=== PATIENT | male | born 1960 | race Caucasian/White ===

== ENCOUNTER → 2016-09-11 | Outpatient (CLI) | payer BC ==
--- NOTE | 2016-09-11 12:01 | MR ---
EXAMINATION TYPE: MR shoulder RT wo con DATE OF EXAM: 09/11/2016 COMPARISON: Plain film 07/21/2016 HISTORY: rt shoulder pain and discomfort TECHNIQUE: Multiplanar, multisequence imaging of the right shoulder is performed without contrast. FINDINGS: Rotator Cuff: There is abnormal increased signal within the rotator cuff tendon, there is abnormal th ickening. Increased signal is present at the insertion on the humeral head both anteriorly and excellence leader iorly suggestive of partial full-thickness tears. There are associated pseudocysts, geodes. Acromioclavicular Joint: Hypertrophic changes present, there is some mass effect on the musculotendin ous junction of supraspinatus, fluid signal present without subacromial subdeltoid bursa Glenohumeral Joint: Intact Labrum: The labrum appears grossly intact given limitation of non-arthrogram study. Biceps Tendon: Long head of biceps tendon is perched the anterior aspect of the bicipital groove. It appears subluxed medially. Bone marrow signal: As above Other: No additional significant abnormality is appreciated. IMPRESSION: Partial full-thickness tears of the rotator cuff there is associated tendinosis. Correlate for imping ement. Displacement of the long head of biceps tendon.
== END | disposition home or self-care (01) ==
LOC: RADMRIMAIN 10:13
PROVIDERS: ATTEND Orthopaedic Surgery
DX: M75.111 Incomplete rotator cuff tear or rupture of right shoulder, not specified as traumatic (principal); S43.004A Unspecified dislocation of right shoulder joint, initial encounter; M67.813 Other specified disorders of tendon, right shoulder

== ENCOUNTER 2017-05-31 05:51 | Day surgery (SDC) | payer BC ==
[2017-05-28 12:54] VITALS: BMI 26.5
--- NOTE | 2017-05-30 16:57 | HP ---
HISTORY AND PHYSICAL REASON FOR ADMISSION: Surgery scheduled for 05/31/2017. HISTORY OF PRESENT ILLNESS: Devonte Carlson is a 56-year-old patient seen with progressive right shoulder pain. After having treatment options discussed, he elected to proceed with arthroscopy. Consent regarding procedure was obtained. Medical clearance provided by Dr. Garcia. PAST MEDICAL HISTORY: Osteoarthritis. PAST SURGICAL HISTORY: Arthroscopy. MEDICATIONS: Multivitamins. ALLERGIES: None reported. SOCIAL HISTORY: Patient currently smokes cigarettes. PHYSICAL EXAMINATION: Evaluation right shoulder flexion 150 degrees, abduction 140 degrees, external rotation 60 degrees with weakness and pain. There is tenderness along the anterolateral acromion rotator cuff insertion site. Positive impingement sign at 100 degrees. Drop- arm sign is positive. Distal neurovascular exam is intact. RADIOGRAPHS: Right shoulder radiographs revealed a type 2 anterior acromion, acromioclavicular joint osteoarthritis and cystic changes of the tuberosity. An MRI of the right shoulder revealed impingement with rotator cuff tendon tear. IMPRESSION: 1. Right shoulder impingement with rotator cuff tear. 2. Tobacco use. PLAN: Right shoulder arthroscopy with subacromial decompression, probable arthroscopic rotator cuff repair, possible Enid procedure and debridement. Surgery is scheduled for 05/31/2017. MMODL / IJN: [id number] /
[~2017-05-31 05:51] MED LIST: LACTATED RINGERS 1,000 ML IV SCH; MORPHINE SULFATE 4 MG/ML SYRINGE IV PRN; ceFAZolin IN SWFI 2 GM/20 ML SYRINGE IVP ONE
[2017-05-31 06:15] VITALS: RESP 16; TEMP 97.4
[2017-05-31] MEDS ORDERED: MIDAZOLAM 2 MG/2 ML VIAL IVP ONE (06:58)
[2017-05-31] MEDS ORDERED: ONDANSETRON 4 MG/2 ML VIAL IVP ONE (06:59)
[2017-05-31] MEDS ORDERED: DEXAMETHASONE SOD PHOSPHATE 10 MG/ML 1 ML VIAL IV ONE (06:59)
[2017-05-31] MEDS ORDERED: SUCCINYLCHOLINE CHLORIDE 100 MG/5 ML SYR IV ONE (07:17)
[2017-05-31] MEDS ORDERED: PROPOFOL 10 MG/ML 20 ML VIAL IV ONE (07:17)
[2017-05-31] MEDS ORDERED: GLYCOPYRROLATE 0.2 MG/ML 2 ML VIAL ONE (07:17)
[2017-05-31] MEDS ORDERED: ROPIVACAINE 5 MG/ML 30 ML VIAL ONE (07:17)
[2017-05-31] MEDS ORDERED: LIDOCAINE 1% INJ 10MG/ML (20 ML MDV) ONE (07:17)
[2017-05-31] MEDS ORDERED: LACTATED RINGERS 1,000 ML IV ONE (07:58)
--- NOTE | 2017-05-31 08:00 | P.ONQ ---
Anesthesiology Proc Note - PNB - Peripheral Nerve Block Performed Right Interscalene Single Time Out Performed: Yes Procedure Start Time: 06:47 Procedure Stop Time: 06:56 Indication: Acute Post-Operative Pain, Requested by physician Sedation Type: Sedate with meaningful contact maintained Preparation: Sterile Prep Position: Supine Catheter: None Needle Types: Facet Needle Size: 50mm (2") Needle Gauge: 20 Technique: Ultrasound Injectate: 0.5% Ropivacaine (see comment for volume) (15 mls Ropivacaine 0.5% + 15 mls Lidocaine 1%)
--- NOTE | 2017-05-31 09:19 | P.OP ---
Date of Procedure: 05/31/17 Preoperative Diagnosis: Right shoulder impingement Postoperative Diagnosis: 1. Right shoulder rotator cuff tear 2. Right shoulder impingement 3. Right shoulder acromioclavicular joint osteoarthritis 4. Right shoulder partial long head biceps tendon tear 5. Right shoulder superficial anterior labral tear Procedure(s) Performed: 1. Right shoulder arthroscopic rotator cuff repair 2. Right shoulder arthroscopic subacromial decompression 3. Right shoulder arthroscopic [place] procedure 4. Right shoulder arthroscopic biceps tenotomy 5. Right shoulder arthroscopic debridement labral tear Implants: 4-valeris peek anchors Anesthesia: GETA, regional (Interscalene block) Surgeon: Brandyn Grace Airline Counter Agent #1: Ricardo Starr Estimated Blood Loss (ml): 10 Pathology: none sent Condition: stable Disposition: PACU Indications for Procedure: 56-year-old patient seen with progressive right shoulder pain. After treatment options were discussed, he elected to proceed with arthroscopy. Operative Findings: See description of procedure Description of Procedure: Patient underwent a shoulder block by department of anesthesia. The patient was then taken to the operative suite. The patient underwent a general anesthetic by the department of anesthesia. The patient was placed into a lateral position and secured. There was appropriate padding of the bony prominence. Right shoulder was then prepped and draped in normal sterile orthopedic fashion. We placed the extremity in 10 pounds of longitudinal traction. A posterior incision was now made for a posterior working portal site. The trocar and cannula were inserted into the glenohumeral joint. Arthroscopy was initiated. Spinal needle was now inserted anteriorly, to ascertain the anterior working portal site. An incision was now made in that area, a trocar was inserted followed by a probe. There was superficial tearing noted of the anterior labrum. Partial tearing and hyperemia of the biceps tendon. Grade 1 chondromalacia changes anterior glenoid. Rotator cuff tear visualized from glenohumeral side. I debrided the labral tear down to stable tissue. I performed an arthroscopic biceps tenotomy. The residual labrum was stable. Instruments now removed from the glenohumeral joint. Utilizing the posterior working portal site, the trocar and cannula were inserted into the subacromial space. Arthroscopy initiated. I made an incision 2 fingerbreadths lateral to the acromion. I introduced my trocar followed by my ArthroCare ablator. I now began ablating thick subacromial bursal tissue, which exposed the undersurface of the anterior acromion. This was diminished subacromial space. There was a very prominent anterior acromion. A motorized bur was introduced and a subacromial decompression was performed. I also excised some osteophytes off the inferior aspect of the distal clavicle. The AC joint was visualized and noted to be fairly arthritic. Our motorized bur was introduced in the anterior portal site and a Enid procedure was performed without difficulty, decompressing the AC joint nicely. I turned my attention to the rotator cuff. There was a 2-2.5 cm distal supraspinatus rotator cuff tendon tear. I debrided the margins down to stable tissue. A now measured approximately 2.5 cm. It was freely mobile over the footprint. I abraded the footprint with a motorized bur. I created an county assessor he portal site off the lateral acromion. I introduced 2 medial anchors with 2 sutures each. I passed all 8 limbs of suture through good bites of rotator cuff tendon. I now crisscrossed the sutures and introduced 2 lateral anchors which compressed our tendon on the footprint very nicely. Residual suture limbs were clipped. The repair was probed and found to be stable. I injected 1 mL of UCT intra- articular. Instruments now removed from the portal sites. All portal sites were approximated with nylon suture. Sterile dressings were applied followed by a shoulder immobilizer. Tony OSORIO assisted with the procedure. The patient was awakened, transferred to a bed, and taken to recovery in stable condition.
[2017-05-31 10:50] VITALS: BP 108/74; PULSE 61
== END 2017-05-31 11:01 | disposition home or self-care (01) ==
LOC: OR 05:51
PROVIDERS: ATTEND Orthopaedic Surgery
DX: M75.101 Unspecified rotator cuff tear or rupture of right shoulder, not specified as traumatic (principal); M75.41 Impingement syndrome of right shoulder; M19.011 Primary osteoarthritis, right shoulder; S46.111A Strain of muscle, fascia and tendon of long head of biceps, right arm, initial encounter; S43.431A Superior glenoid labrum lesion of right shoulder, initial encounter; M94.211 Chondromalacia, right shoulder; M25.711 Osteophyte, right shoulder; X58.XXXA Exposure to other specified factors, initial encounter; F17.210 Nicotine dependence, cigarettes, uncomplicated
CPT/HCPCS: 64415; 29826; 29827; 29824; C1713 ×2; C1765; J2250; J1100; J2405; J2001; J2795; J0330; J2704; J0690

== ENCOUNTER → 2020-08-31 | Outpatient (CLI) | payer BC ==
[2020-08-31 16:23] LABS: Basophils # (A) 0.1 k/uL (0-0.2); Basophils % (A) 1 %; Eosinophils # (A) 0.3 k/uL (0-0.7); Eosinophils % (A) 4 %; HCT 41.9 % (39.0-53.0); HGB 13.8 gm/dL (13.0-17.5); Lymphocytes # (A) 1.8 k/uL (1.0-4.8); Lymphocytes % (A) 26 %; MCH 31.5 pg (25.0-35.0); MCHC 32.9 g/dL (31.0-37.0); MCV 95.8 fL (80.0-100.0); Mean Platelet Volume 8.1; Monocytes # (A) 0.4 k/uL (0-1.0); Monocytes % (A) 5 %; Neutrophils # (A) 4.5 k/uL (1.3-7.7); Neutrophils % (A) 62 %; Platelet Count 263 k/uL (150-450); RBC 4.38 m/uL (4.30-5.90); RDW 13.2 % (11.5-15.5); WBC 7.2 k/uL (3.8-10.6)
[2020-08-31 16:30] LABS: Potassium 4.5 mmol/L (3.5-5.1)
[2020-08-31 16:35] LABS: Prothrombin Time 10.3 sec (9.0-12.0)
== END | disposition home or self-care (01) ==
LOC: LABPAT 15:23
PROVIDERS: ATTEND Orthopaedic Surgery
DX: Z01.818 Encounter for other preprocedural examination (principal); M17.11 Unilateral primary osteoarthritis, right knee
CPT/HCPCS: 36415; 80051; 85025; 85610; 87070; 93005

== ENCOUNTER 2020-09-13 08:20 | Day surgery (SDC) | payer BC ==
[2020-09-09 13:26] VITALS: BMI 27.5
--- NOTE | 2020-09-12 09:07 | HP ---
HISTORY AND PHYSICAL REASON FOR ADMISSION: Surgery scheduled 09/13/2020 HISTORY OF PRESENT ILLNESS: Devonte Carlson is a 59-year-old gentleman seen with symptomatic right knee osteoarthritis. We discussed options for treatment. He elected to proceed with right total knee arthroplasty. Consent regarding the procedure was obtained. PAST MEDICAL HISTORY: Noncontributory. SURGICAL HISTORY: Right knee arthroscopy, appendectomy. MEDICATIONS: [id number] vitamins. ALLERGIES: None. SOCIAL HISTORY: He denies tobacco use. PHYSICAL EXAMINATION: Evaluation of the right knee: Range of motion is -2/3-110. He has a mild to moderate effusion. Tenderness along the lateral joint line. Crepitus along the lateral and patellofemoral compartments with range of motion. Pain with patellofemoral compression. Ligaments appear stable. His distal neurovascular exam is intact. RADIOGRAPHS: Radiographs of the right knee revealed severe osteoarthritic changes. IMPRESSION: Right knee osteoarthritis. PLAN: Right total knee arthroplasty. Surgery scheduled for 09/13/2020. MMODL / IJN: [id number] /
[~2020-09-13 08:20] MED LIST changes: +ACETAMINOPHEN TAB 500 MG TAB PO PRN; +DEXAMETHASONE SOD PHOSPHATE 4 MG/ML 1 ML VIAL IV ONE; +LIDOCAINE 1% (10MG/ML) FOR IV START INTRADERMA PRN; +MELOXICAM 7.5 MG TAB PO PRN; +MIDAZOLAM 2 MG/2 ML VIAL IV PRN; -MORPHINE SULFATE 4 MG/ML SYRINGE IV PRN; +ONDANSETRON 4 MG/2 ML VIAL IVP ONE; +ROPIVACAINE/EPI/CLONIDINE/KET 50 ML SYRINGE MISCELLANE PRN; +TRANEXAMIC ACID 1,000 MG in SODIUM CHLORIDE 0.9% 100 ML IVPB PRN; -ceFAZolin IN SWFI 2 GM/20 ML SYRINGE IVP ONE
[2020-09-13] MEDS ORDERED: MIDAZOLAM 2 MG/2 ML VIAL IVP ONE (09:25)
[2020-09-13] MEDS ORDERED: ROPIVACAINE 5 MG/ML 30 ML VIAL ONE (10:15)
[2020-09-13] MEDS ORDERED: LIDOCAINE 1% INJ 10MG/ML (20 ML MDV) ONE (10:15)
[2020-09-13] MEDS ORDERED: MIDAZOLAM 2 MG/2 ML VIAL ONE (10:15)
[2020-09-13] MEDS ORDERED: SODIUM CHLORIDE 0.9% 100 ML BAG ONE (10:15)
[2020-09-13] MEDS ORDERED: fentaNYL (PF) 50 MCG/ML 2 ML AMP ONE (10:15)
[2020-09-13] MEDS ORDERED: KETOROLAC 15 MG/ML 1 ML VIAL ONE (10:15)
[2020-09-13] MEDS ORDERED: PROPOFOL 10 MG/ML 20 ML VIAL IV ONE (10:15)
[2020-09-13] MEDS ORDERED: TRANEXAMIC ACID 1,000 MG/10 ML VIAL ONE (10:15)
[2020-09-13] MEDS ORDERED: ceFAZolin 1,000 MG in SODIUM CHLORIDE 0.9% 1,000 ML IRRIGATION ONE (10:46)
[2020-09-13] MEDS ORDERED: LACTATED RINGERS 1,000 ML IV ONE ×2 (11:57→12:08)
[2020-09-13] MEDS ORDERED: ROPIVACAINE 0.2%-NS ON-Q PUMP 1,090 MG, EMPTY PAIN BALL 1 EACH MISCELLANE PRN (12:04)
[2020-09-13] MEDS ORDERED: HYDROmorphone 1 MG/ML 1 ML SYRINGE IVP PRN (12:08)
[2020-09-13] MEDS ORDERED: HYDROcodone/APAP 5-325MG 1 EACH TAB PO PRN (12:08)
[2020-09-13] MEDS ORDERED: HYDROcodone/APAP 7.5-325MG 1 EACH TAB PO PRN (12:08)
[2020-09-13] MEDS ORDERED: ONDANSETRON 4 MG/2 ML VIAL IVP PRN (12:08)
[2020-09-13] MEDS ORDERED: HYDROmorphone 0.2 MG/1 ML SYRINGE IVP PRN (12:08)
[2020-09-13] MEDS ORDERED: HYDROmorphone 0.5 MG/0.5 ML SYRINGE IVP PRN (12:08)
[2020-09-13] MEDS ORDERED: NALOXONE 0.4 MG/ML 1 ML VIAL IV PRN (12:08)
--- NOTE | 2020-09-13 12:08 | P.OP ---
Date of Procedure: 09/13/20 Preoperative Diagnosis: Right knee osteoarthritis Postoperative Diagnosis: Right knee osteoarthritis Procedure(s) Performed: Right total knee arthroplasty Implants: 1. Depuy attune cruciate retaining size 8 right cemented femur 2. Depuy attune fixed bearing size 8 cemented tibial baseplate 3. Depuy attune size 8 fixed bearing cruciate retaining 7 mm polyethylene tibial insert 4. Depuy attune 41 mm all polyethylene cemented patella Anesthesia: GETA, regional (Adductor canal catheter, I pack block) Surgeon: Brandyn Grace Etl Analyst Developer #1: Geronimo Figueroa Estimated Blood Loss (ml): 55 Pathology: other (Bone) Condition: stable Disposition: PACU Indications for Procedure: 59-year-old gentleman seen with symptomatic right knee osteoarthritis. After treatment options were discussed, he elected to proceed with total knee ar throplasty. Operative Findings: See description of procedure Description of Procedure: Patient was taken to the operative suite after having an adductor canal catheter placed by the department of anesthesia. Patient underwent a general anesthetic by the department of anesthesia. Patient was given preoperative IV intake antibiotics and TXA. A well-padded tourniquet was placed about the right lower extremity. The lower extremity was then prepped and draped in the normal sterile orthopedic fashion. The extremity was elevated, a tourniquet was insufflated to 300. A standard anterior incision was made sharply through skin. Dissection was taken down through the subcutaneous soft tissues down to the extensor mechanism. A medial arthrotomy was performed, patella was everted and knee was flexed. There was advanced osteoarthritis noted. I introduced my distal intramedullary femoral drill. I then introduced the distal femoral cutting jig. Geronimo OSORIO secured the cutting jig with 2 pins. I held retractors in position while Geronimo OSORIO performed the distal femoral resection through the guide area we now removed her distal femoral cutting guide. We now placed our 4-in-1 femoral cutting block and positioned and it was secured with 2 pins by Geronimo OSORIO while I held the block in position. The distal femoral finishing was now completed. A proximal tibial cutting guide was positioned. I held the guide in the appropriate position with both hands well Geronimo OSORIO inserted stabilizing pins into the guide. Proximal tibial cut was made. We now placed a trial femoral component into position, along with an appropriate size tibial tray and insert. We now took the knee through range of motion and had full extension good flexion and good overall soft tissue balance noted. The patella was everted and stabilized with 2 towel clips held by Geronimo OSORIO while I performed a flush with patellar quad tendon utilizing a fresh sawblade. We templated the patella, appropriate drill holes were made. An appropriate trial patella was positioned, knee was taken through full range of motion with the patella tracking very nicely. The trial patella was removed. Drill holes were made through the femoral component. All trial components were removed after marking off the appropriate rotation of the tibia. Retractors were now positioned along the proximal tibia. An appropriate keel punch was made with the appropriate size tibial guide by myself on Geronimo OSORIO assisted by holding retractors. At this point appropriate size implants were chosen and opened. The joint was irrigated copiously with pulse lavage mechanical irrigation. The posterior capsule was infiltrated with local analgesic. The wound was irrigated with pulse lavage mechanical irrigation. We mixed antibiotic methylmethacrylate. We placed the knee into flexion. We placed multiple retractors assisted by Geronimo OSORIO to expose the proximal tibia. Once the methyl methacrylate was ready, the tibial component was cemented into place removing any excess methylmethacrylate form by both myself and Geronimo OSORIO. The femoral component was cemented into place removing the removing any excess methylmethacrylate performed by both myself and Geronimo OSORIO. We then inserted the appropriate size polyethylene tibial insert. We made sure that it was locked into position. We took the knee into full extension, and then back in a flexion making sure we had removed any excess methylmethacrylate. The patellar component was then cemented down and secured with clamp. Excess methylmethacrylate removed. We kept the knee in full extension, patellar clamp in position until methylmethacrylate had hardened. Once it had hardened the pat ellar clamp was removed. The knee was taken through full range of motion. The patella tracked nicely. There was good soft tissue balancing. The tourniquet was now released. Additional hemostasis was achieved via electrocautery. A second gram of TXA was given. The wound again was irrigated with pulse lavage mechanical irrigation. The superficial soft tissues were infiltrated local analgesic. The extensor mechanism was repaired with Vicryl. We checked the repair with range of motion and it was stable. The subcutaneous soft tissues were repaired with Vicryl in layers. The skin was approximated with pernio/Dermabond. Sterile dressings were applied followed by loose web roll and Jze bandage. The patient was transferred to a bed, and taken to recovery in stable and satisfactory condition. Geronimo OSORIO assisted with this complex procedure.
[2020-09-13] MEDS: HYDROmorphone 0.5 MG/0.5 ML SYRINGE IVP PRN ×4 (12:28→13:00)
[2020-09-13 12:29] VITALS: TEMP 97
[2020-09-13] MEDS ORDERED: diphenhydrAMINE 50 MG/ML 1 ML VIAL IVP ONE (12:34)
--- NOTE | 2020-09-13 13:26 | XR ---
EXAMINATION TYPE: XR knee limited RT DATE OF EXAM: 09/13/2020 CLINICAL HISTORY: Right knee pain and arthritis status post total knee replacement. TECHNIQUE: Portable AP and crosstable lateral views of the right knee are obtained immediately posto peratively. COMPARISON: 06/02/2020 FINDINGS: Metallic hardware from total right knee arthroplasty is seen and appears satisfactory in a lignment and position. There is evidence of recent surgery with diffuse subcutaneous gas joint effus ion with gas noted. Vascular calcifications are also seen. IMPRESSION: METALLIC HARDWARE FROM TOTAL right KNEE ARTHROPLASTY IS SATISFACTORY IN ALIGNMENT.
--- NOTE | 2020-09-13 13:49 | P.ANPRN ---
Procedure Note - Anesthesia - Nerve Block Performed Right Adductor Canal Infusion Time Out Performed: Yes (0924) Date of Procedure: 09/13/20 Procedure Start Time: :24 Procedure Stop Time: :33 Location of Patient: PreOp Indication: Acute Post-Operative Pain, Dx/Pain Location (Right Knee), Requested by Surgeon Specifically requested for management of pain by DrMartinez: Brandyn Grace Sedation Type: Sedate with meaningful contact maintained Preparation: Sterile Prep, Sterile Dressing Position: Supine Catheter: Indwelling Needle Types: On-Q Needle Gauge: 18 Ultrasound used to visualize needle placement: Yes Ultrasound used to observe medication spread: Yes Injectate: 0.5% Ropivacaine (see comment for volume) (15 cc) Blood Aspirated: No Pain Paresthesia on Injection Noted: No Resistance on Injection: Normal Image Stored and Saved: Yes Right iPack Single Time Out Performed: Yes Date of Procedure: 09/13/20 Location of Patient: PreOp Indication: Acute Post-Operative Pain, Requested by Surgeon Specifically requested for management of pain by DrMartinez: Brandyn Grace Sedation Type: Sedate with meaningful contact maintained Preparation: Sterile Prep Position: Left Lateral Catheter: None Needle Types: Pajunk Needle Gauge: 21 Ultrasound used to visualize needle placement: Yes Ultrasound used to observe medication spread: Yes Injectate: 0.5% Ropivacaine (see comment for volume) (15 cc) Blood Aspirated: No Pain Paresthesia on Injection Noted: No Resistance on Injection: Normal Image Stored and Saved: Yes Events: Uneventful and Well Tolerated
[2020-09-13] MEDS ORDERED: MAGNESIUM HYDROXIDE 2,400 MG/10 ML CUP PO PRN (14:53)
[2020-09-13 17:19] VITALS: BP 110/66; PULSE 57; RESP 18
[2020-09-13] MEDS ORDERED: SENNOSIDES-DOCUSATE SODIUM 1 EACH TAB PO SCH (21:00)
[2020-09-14] MEDS ORDERED: ENOXAPARIN 40 MG/0.4 ML SYRINGE SQ SCH (09:00)
== END 2020-09-13 17:39 | disposition home health service (06) ==
LOC: OR 08:20
PROVIDERS: ATTEND Orthopaedic Surgery
DX: M17.11 Unilateral primary osteoarthritis, right knee (principal); F17.210 Nicotine dependence, cigarettes, uncomplicated
CPT/HCPCS: 97110; 97161; 64999; 64448; 76942; 88300; 73560; 27447; C1776; C1713; J2250; J1200; J1100; J0690 ×2; J2405; J2001; J3010; J2795 ×2; J1885; J2704; J1170

== ENCOUNTER → 2024-01-25 | Outpatient (CLI) | payer BC ==
[2024-01-25 15:12] LABS: Basophils # (A) 0.06 X 10*3/uL (0.00-0.10); Basophils % (A) 0.9 %; Eosinophils # (A) 0.26 X 10*3/uL (0.04-0.35); Eosinophils % (A) 4.1 %; HCT 42.4 % (39.6-50.0); HGB 13.8 g/dL (13.0-17.0); Lymphocytes # (A) 1.56 X 10*3/uL (0.90-5.00); Lymphocytes % (A) 24.6 %; MCH 31.7 pg (27.0-32.0); MCHC 32.5 g/dL (32.0-37.0); MCV 97.2 FL (80.0-97.0); Mean Platelet Volume 11.9 FL (9.5-12.2); Monocytes # (A) 0.36 X 10*3/uL (0.20-1.00); Monocytes % (A) 5.7 %; NRBC Per 100 WBC 0 X 10*3/uL (0.00-0.01); Neutrophils # (A) 4.08 X 10*3/uL (1.80-7.70); Neutrophils % (A) 64.4 %; Platelet Count 263 X 10*3/uL (140-440); RBC 4.36 X 10*6/uL (4.40-5.60); RDW 12.8 % (11.5-14.5); WBC 6.34 X 10*3/uL (4.50-10.00)
[2024-01-25 15:29] LABS: BUN/Creat Ratio 13.11 Ratio (12.00-20.00); Blood Urea Nitrogen 11.8 mg/dL (9.0-27.0); Calcium 9.2 mg/dL (8.7-10.3); Carbon Dioxide 26.6 mmol/L (21.6-31.8); Chloride 103 mmol/L (96-109); Glucose 91 mg/dL (70-110); Potassium 4.6 mmol/L (3.5-5.5); Sodium 139 mmol/L (135-145)
[2024-01-25 17:06] LABS: INR 1.01 sec (0.93-1.11); Prothrombin Time 10.9 sec (9.9-11.9)
== END | disposition home or self-care (01) ==
LOC: LABPAT 10:49
PROVIDERS: ATTEND Orthopaedic Surgery
CPT/HCPCS: 80048; 85025; 85610; 86850; 86900; 86901; 87070; 93005

== ENCOUNTER 2024-02-04 05:45 | Day surgery (SDC) | payer BC, MEDICARE ==
[2024-01-30 09:57] VITALS: BMI 27.9
[~2024-02-04 05:45] MED LIST changes: -ACETAMINOPHEN TAB 500 MG TAB PO PRN; -DEXAMETHASONE SOD PHOSPHATE 4 MG/ML 1 ML VIAL IV ONE; -LACTATED RINGERS 1,000 ML IV SCH; -LIDOCAINE 1% (10MG/ML) FOR IV START INTRADERMA PRN; -MELOXICAM 7.5 MG TAB PO PRN; -MIDAZOLAM 2 MG/2 ML VIAL IV PRN; -ONDANSETRON 4 MG/2 ML VIAL IVP ONE; -ROPIVACAINE/EPI/CLONIDINE/KET 50 ML SYRINGE MISCELLANE PRN; +TRANEXAMIC 1,000 MG/100ML-NACL 1,000 MG in SALINE 1 100ML.BAG IVPB PRN; -TRANEXAMIC ACID 1,000 MG in SODIUM CHLORIDE 0.9% 100 ML IVPB PRN
[2024-02-04 06:43] VITALS: TEMP 97.2
[2024-02-04] MEDS: IV FLUID CONTINUATION 1,000 ML IV ONE ×2 (06:45→09:38)
[2024-02-04] MEDS: MIDAZOLAM 2 MG/2 ML VIAL IV ONE (06:50)
[2024-02-04] MEDS: LACTATED RINGERS 1,000 ML IV SCH (07:04)
[2024-02-04] MEDS: MELOXICAM 7.5 MG TAB PO PRN (07:04)
[2024-02-04] MEDS: ACETAMINOPHEN TAB 500 MG TAB PO PRN (07:05)
[2024-02-04] MEDS: ONDANSETRON 4 MG/2 ML VIAL IVP ONE (07:06)
[2024-02-04] MEDS: DEXAMETHASONE SOD PHOSPHATE 4 MG/ML 1 ML VIAL IV ONE (07:06)
--- NOTE | 2024-02-04 07:20 | HP ---
HISTORY AND PHYSICAL DATE OF SURGERY: February 04, 2024 HISTORY OF PRESENT ILLNESS: Devonte Carlson is a 63-year-old gentleman, seen with symptomatic left hip osteoarthritis. We discussed options regarding treatment. He elected to proceed with direct anterior left total hip arthroplasty. Consent regarding the procedure was obtained. PAST MEDICAL HISTORY: Noncontributory. SURGICAL HISTORY: Total knee arthroplasty, appendectomy. DAILY MEDICATIONS: Multivitamin. ALLERGIES: None. SOCIAL HISTORY: He denies tobacco use. PHYSICAL EVALUATION OF THE LEFT HIP: He has very limited range of motion, severe pain, positive hip impingement sign. Straight-leg raise is negative. Distal neurovascular exam is intact. IMAGING STUDIES: Left hip radiographs reveal severe osteoarthritic changes. IMPRESSION: Left hip osteoarthritis. PLAN: Direct anterior left total hip arthroplasty. MMODL / IJN: [id number] /
[2024-02-04] MEDS ORDERED: PROPOFOL 10 MG/ML 20 ML VIAL IV ONE (07:25)
[2024-02-04] MEDS ORDERED: TRANEXAMIC 1,000 MG/100ML-NACL PREMIX BAG ONE (07:25)
[2024-02-04] MEDS ORDERED: HYDROmorphone (PF) 1 MG/ML ONE (07:25)
[2024-02-04] MEDS ORDERED: fentaNYL (PF) 50 MCG/ML 2 ML AMP ONE (07:25)
[2024-02-04] MEDS ORDERED: NEOSTIGMINE 1 MG/ML 10 ML VIAL ONE (07:25)
[2024-02-04] MEDS ORDERED: WATER FOR INJECTION, STERILE 10 ML VIAL IV ONE (07:25)
[2024-02-04] MEDS ORDERED: LIDOCAINE 1% INJ 10MG/ML (20 ML MDV) ONE (07:25)
[2024-02-04] MEDS ORDERED: MIDAZOLAM 2 MG/2 ML VIAL ONE (07:25)
[2024-02-04] MEDS ORDERED: GLYCOPYRROLATE 0.2 MG/ML 2 ML VIAL ONE (07:25)
[2024-02-04] MEDS ORDERED: SUCCINYLCHOLINE CHLORIDE 200 MG/10 ML VIAL IV ONE (07:25)
[2024-02-04] MEDS ORDERED: ROCURONIUM 10 MG/ML (5 ML VIAL) IV ONE (07:25)
[2024-02-04] MEDS ORDERED: ROPIVACAINE 5 MG/ML 30 ML VIAL ONE (07:25)
[2024-02-04] MEDS ORDERED: DEXAMETHASONE SOD PHOSPHATE 4 MG/ML 1 ML VIAL ONE (07:25)
[2024-02-04] MEDS ORDERED: ePHEDrine 50 MG/ML 1 ML VIAL ONE (07:25)
[2024-02-04] MEDS ORDERED: ONDANSETRON 4 MG/2 ML VIAL IVP PRN (09:08)
[2024-02-04] MEDS ORDERED: LACTATED RINGERS 1,000 ML IV ONE (09:08)
[2024-02-04] MEDS ORDERED: HYDROmorphone 0.5 MG/0.5 ML SYRINGE IVP PRN ×2 (09:08)
[2024-02-04] MEDS ORDERED: NALOXONE 0.4 MG/ML 1 ML VIAL IV PRN (09:08)
[2024-02-04] MEDS ORDERED: HYDROcodone/APAP 5-325MG 1 EACH TAB PO PRN (09:08)
[2024-02-04] MEDS ORDERED: HYDROmorphone 2 MG/ML 1 ML SYRINGE IVP PRN (09:08)
--- NOTE | 2024-02-04 09:08 | P.OP ---
Date of Procedure: 02/04/24 Preoperative Diagnosis: Left hip osteoarthritis Postoperative Diagnosis: Left hip osteoarthritis Procedure(s) Performed: Direct anterior left total hip arthroplasty Implants: 1. DePuy Corail 135 degree standard collared size 14 press-fit femoral stem 2. DePuy Roach 60 mm press-fit acetabular shell 3. DePuy Roach neutral polyethylene acetabular liner 36 mm ID 60 mm OD 4. Biolox delta ceramic femoral head +1.5 36 mm Anesthesia: GETA, regional (Erector spinae block) Surgeon: Brandyn Grace Mobile Designer #1: Geronimo Figueroa Estimated Blood Loss (ml): 40 Pathology: none sent Condition: stable Disposition: PACU Indications for Procedure: 63-year-old gentleman seen with symptomatic left hip osteoarthritis. After having treatment options discussed, he elected to proceed with direct anterior left total hip arthroplasty. Operative Findings: See description of procedure Description of Procedure: The patient was taken to the operative suite. Patient underwent a general anesthetic by the department of anesthesia. Patient was then transferred to the Holland table. Patient was given preoperative IV antibiotics and TXA. Both lower extremities were placed in standard leg spars. The hip was then prepped and draped in the normal sterile orthopedic fashion. A standard anterior incision was made beginning 3 cm lateral and 1 cm distal to the ASIS extending 10 cm. Di ssection was then carried down through the subcutaneous soft tissues down to the fascia overlying the tensor fascia janusz. An incision was now made through the fascia. Careful dissection was taken down exposing the tensor fascia janusz muscle. A Cobra retractor was now placed along the medial femoral neck and a second one along the lateral femoral neck. The venous circumflex vessels were now identified, cauterized and clipped. We identified the anterior hip capsule. An incision was made through the hip capsule along the lateral border. I performed a partial anterior capsulectomy. Retractors were now placed around the femoral neck itself. A femoral neck cut was now made with a sagittal saw. It was completed with an osteotome at the lateral neck area. The femoral head was now removed without difficulty. The extremity was now rotated to 60 of external rotation. It was locked in position. Residual labrum was now debrided out. Serial reaming was performed of the acetabulum while DEVON Licea assisted holding an anterior retractor for exposure. Once we reached the appropriate size and a trial was position and fit nicely. The appropriate size was now chosen opened and made available. It was introduced into the acetabulum without difficulty. The C-arm/fluoroscopy was now brought into the operative field. We made sure we had a true AP pelvic view. We now under direct C- arm/fluoroscopy introduced into the acetabular component with appropriate version and inclination. I held the cup in appropriate position while DEVON Licea morning used a mallet to seat the acetabular component. I noted the component now to be well seated and stable. Acetabular cup introduce her was removed. The C-arm was pulled back. An appropriate liner was introduced and clicked into position. It was felt to be stable. At this point retractors were removed. The extremity was now placed into 140 external rotation with no traction. The leg was now dropped to the ground and adducted. Appropriate retractors were now positioned along the proximal femur. We also placed our femoral look into position. Additional capsular releasing was performed to gain access to the proximal femur. We now used a box osteotome. A canal finder was now utilized. Serial broaching was now performed with the assistance of DEVON Licea tapping the broaches down with a mallet while held the broach in appropriate rotation and position. This was done until we reached the appropriate size with good overall rotational stability. Appropriate calcar planing was performed. A trial head/neck was placed into position. The hip was now reduced. The C-arm/fluoroscopy was brought back into the operative field. A spot film was obtained of the nonoperative hip. I obtained an AP pelvis which demonstrated adequate leg length alignment. The trial components appeared adequately sized and positioned. The C-arm/fluoroscopy was pulled back. Retractors were repositioned and the hip was dislocated. The leg was again taken down to the ground and adducted. Appropriate retractors were repositioned as well as the femoral hook. All trial components were removed. The femoral implant was opened along with the femoral head. The femoral implant was introduced on the appropriate handle into our pre-broached area. I held the component position while DEVON Licea used a mallet to seat the femoral component. The femoral component was now noted to be well seated and stable.. The femoral head was introduced with good positioning and fixation noted. Retractors were now removed. The hip was now reduced. There appeared be good positioning of the hip confirmed on intraoperative fluoroscopy. Spot films were obtained to document this. A second gram of TXA was given. Bipolar cautery had been utilized intermittently through the procedure for hemostasis. The wound was irrigated copiously with pulse lavage mechanical irrigation. The fascia was repaired with Vicryl suture. The subcutaneous soft tissues were repaired in layers with Vicryl suture. The skin was approximated with pernio/Dermabond. Sterile dressings were applied. Patient was then awakened, transferred to a bed and taken to recovery in stable condition. Geronimo OSORIO assisted with the complex procedure.
--- NOTE | 2024-02-04 09:11 | FL ---
Fluoroscopy INDICATION: Pain post left hip replacement FINDINGS: Fluoroscopy time: 17.8 seconds. Total dose area product (DAP) in uGy*m?, mGy*cm? (or similar): 1.0359 Images obtained: 3. 2 images were obtained over the left hip prosthesis with acetabular component. One image documents fl uoroscopy time IMPRESSION: 1. Documentation of fluoroscopy. [facility], , 02/04/2024 9:09 AM
[2024-02-04] MEDS: LACTATED RINGERS 1,000 ML IV ONE (09:15)
[2024-02-04] MEDS: HYDROmorphone 0.5 MG/0.5 ML SYRINGE IVP PRN (09:50)
[2024-02-04] MEDS: DEXAMETHASONE SOD PHOSPHATE 4 MG/ML 1 ML VIAL INTRAARTIC ONE (10:25)
[2024-02-04] MEDS: ROPIVACAINE 5 MG/ML 30 ML VIAL MISCELLANE ONE ×2 (10:25)
[2024-02-04] MEDS: HYDROcodone/APAP 7.5-325MG 1 EACH TAB PO PRN (11:49)
[2024-02-04 12:14] VITALS: RESP 16
[2024-02-04 12:32] VITALS: BP 116/78; PULSE 64
--- NOTE | 2024-02-04 17:18 | P.ANPRN ---
Procedure Note - Anesthesia - Nerve Block Performed Left Russ Single Time Out Performed: Yes ([id number]) Date of Procedure: 02/04/24 Location of Patient: PreOp Indication: Acute Post-Operative Pain, Dx/Pain Location (left hip), Requested by Surgeon Specifically requested for management of pain by DrMartinez: Brandyn Grace Sedation Type: Sedate with meaningful contact maintained Preparation: Sterile Prep Position: Supine Catheter: None Needle Types: Pajunk Needle Gauge: 21 Ultrasound used to visualize needle placement: Yes Ultrasound used to observe medication spread: Yes Injectate: 0.5% Ropivacaine (see comment for volume) (25 mL +4 mg of Decadron +10 mL of saline) Blood Aspirated: No Pain Paresthesia on Injection Noted: No Resistance on Injection: Normal Image Stored and Saved: Yes Events: Uneventful and Well Tolerated
--- NOTE | 2024-02-05 08:51 | P.ANPRN ---
Procedure Note - Anesthesia - Nerve Block Performed Left Erector Spinae Single Time Out Performed: Yes Date of Procedure: 02/04/24 Procedure Start Time: 10:49 Procedure Stop Time: 10:52 Location of Patient: PreOp Indication: Acute Post-Operative Pain, Requested by Surgeon Sedation Type: Sedate with meaningful contact maintained Preparation: Sterile Prep Position: Prone Needle Types: Pajunk Needle Gauge: 21 Ultrasound used to visualize needle placement: Yes Ultrasound used to observe medication spread: Yes Blood Aspirated: No Pain Paresthesia on Injection Noted: No Resistance on Injection: Normal Image Stored and Saved: Yes Events: Uneventful and Well Tolerated (13.5% 15 cc plus normal saline 10 cc plus dexamethasone 4 mg given at L1 on the left side)
== END 2024-02-04 15:14 | disposition home health service (06) ==
LOC: OR 05:45
PROVIDERS: ATTEND Orthopaedic Surgery
DX: M16.12 Unilateral primary osteoarthritis, left hip (principal); F17.210 Nicotine dependence, cigarettes, uncomplicated; E07.9 Disorder of thyroid, unspecified; Z96.659 Presence of unspecified artificial knee joint; Z90.49 Acquired absence of other specified parts of digestive tract
CPT/HCPCS: 97530; 97161; 73501; 27130; J2250; J1100; J0690; J2405; J2795; J1171; 64447; 64999